=== PATIENT | male | born 1965 | race Caucasian/White ===

== ENCOUNTER 2017-10-08 08:56 | Day surgery (SDC) | payer OTHER, BC ==
[~2017-10-08] VITALS: Ht 180.3 cm; Wt 102.1 kg
--- NOTE | ~2017-10-08 | OP ---
PATIENT NAME: NADREE FERRO MEDICAL RECORD: [id number] :63 LOCATION:[facility] ADMISSION DATE: SURGEON: LIVIER PATEL MD DATE OF OPERATION: 10/08/2017 PREOPERATIVE DIAGNOSES: 1. Impingement syndrome of the right shoulder. 2. Adhesive capsulitis of the right shoulder. POSTOPERATIVE DIAGNOSES: 1. Impingement syndrome of the right shoulder. 2. Adhesive capsulitis of the right shoulder. PROCEDURES: 1. Arthroscopic distal clavicle excision done through separate incision - 1 cm. 2. Arthroscopic subacromial decompression, acromioplasty and bursectomy. 3. Manipulation under anesthesia. SURGEON: Livier Patel MD ANESTHESIA: General. INTRAOPERATIVE COMPLICATIONS: None. SUMMARY OF PATHOLOGIC FINDINGS: While it was thought the patient may have a SLAP lesion, his bicipital labral complex and all were in relatively good shape, clearly the patient had findings consistent with adhesive capsulitis and impingement. OPERATIVE SUMMARY IN DETAIL: After obtaining the appropriate preoperative orthopedic surgery consent as well as anesthetic consultation, evaluation and clearance, the patient was brought to the operating room and placed on the operating table in supine position. After general laryngeal mask administered, the patient was placed in a left lateral decubitus position. All pressure points were well padded to include down leg peroneal pad as well as axillary roll. The patient was held firmly to the operating table using the vacuum pack suction system. Right upper extremity and shoulder were then prepped and draped in routine sterile fashion. At this point, the arm was then manipulated first in abduction while holding the scapula in stable position followed by external rotation, internal rotation, flexion and extension. It is of note that the patient had a very tight dense adhesive capsulitis that required substantial amount of force for manipulation. Having completed this, the arm was then attached to the Arthrex traction boom at 30 degrees of forward flexion, 30 degrees of abduction, 10 pounds of traction laterally. Arthroscopy was established in the glenohumeral joint from posterior portal. Anterior portal was established in the anterior safe interval. Diagnostic arthroscopy revealed substantial amounts of blood from the manipulation; however, no fractures or chondral lesions were noted. Attention then turned to the subacromial space. After arthroscopy established in the subacromial space, accessory lateral portal was created through which an [place] tissue ablation system was utilized to denude the undersurface of the acromion of all soft tissue elements and released the coracoacromial ligament. Having completed this, a 5-0 barrel bur was used for perform acromioplasty at the level of acromioclavicular joint and through a separate anterior arthroscopic portal under direct arthroscopic visualization, distal clavicle was excised using the bur for 1 cm. Having completed this, the OPERATIVE REPORT [id number] ANDREE FERRO residual bursitis was taken off the top of the rotator cuff, no rotator cuff tearing was noted. Then, the arthroscopy portals were closed in routine interrupted fashion using 4-0 Prolene. Sterile dressings were applied. The patient was awakened and taken to the recovery room in stable condition. All final needle and sponge counts were correct. TRANSINT:[id number] Voice Confirmation ID: [id number] DOCUMENT ID: [id number] AMANDA RICHARDS, LIVIER DRISCOLL at 1005 CC: [id number] DICTATION DATE: 10/09/17 1007 REVOLVING INVENTORY CLERK: 10/09/17 1223 [facility] 10/08/17 [facility] [address] [place] [address]
[~2017-10-08 08:56] MED LIST: DEMEROL50 MG PO; MICARDIS40 MG
[2017-10-08 09:53] LABS: HEMATOCRIT 47.4 % (42.0-54.0); HEMOGLOBIN 17.2 g/dL (13.5-17.5); MCH 32.1 pg (26.0-34.0); MCHC 36.3 g/dL (31.0-37.0); MCV 88.6 fL (80.0-100.0); MEAN PLATELET VOLUME 10.2 fL (7.4-10.4); RBC 5.35 10x6/uL (4.20-6.10); RDW 12.3 % (11.5-14.5); WBC 8.9 10x3/uL (4.8-10.8)
[2017-10-08] MEDS ORDERED: VIAGRA100 MG PO (10:27)
[2017-10-08 10:32] VITALS: BP 127/80; Ht 180.3 cm; Wt 102.1 kg
[2017-10-08] MEDS ORDERED: HYDROCODONE-APA1 TAB PO (14:59)
== END 2017-10-08 17:30 | disposition home or self-care (01) ==
LOC: D.OPS 08:56 → D.PAN 11:15 → D.OPS 13:30
PROVIDERS: Anesthesiology
DX: M75.41 Impingement syndrome of right shoulder (principal); M75.01 Adhesive capsulitis of right shoulder; Z01.812 Encounter for preprocedural laboratory examination